=== PATIENT | female | born 1985 | race Caucasian/White ===

== ENCOUNTER 2018-04-13 06:01 | Inpatient (IN) ==
[2018-04-13] MEDS ORDERED: Ringers Solution, Lactated 1,000 ML ONE ×2 (06:11→08:58)
[2018-04-13] MEDS ORDERED: Naloxone 0.4 MG/ML INJ IVP PRN ×3 (06:27→10:19)
[2018-04-13] MEDS ORDERED: Metoclopramide 10 MG/2 ML VIAL IVP PRN ×2 (06:27→10:19)
[2018-04-13] MEDS ORDERED: Famotidine 20 MG/2 ML VIAL IVP PRN (06:27)
[2018-04-13] MEDS ORDERED: Ondansetron 4 MG/2 ML VIAL IVP PRN ×2 (06:27→10:19)
[2018-04-13] MEDS ORDERED: Ringers Solution, Lactated 1,000 ML IVC SCH (06:30)
[2018-04-13 06:49] LABS: Amphetamine Screen,Urine Negative ng/mL (Cutoff=1000); Barbiturate Screen,Urine Negative ng/mL (Cutoff=200)
[2018-04-13 06:50] LABS: Benzodiazepines Screen,Urine Negative ng/mL (Cutoff=300); Cannabinoid Screen,Urine Negative ng/mL (Cutoff = 50); Cocaine Screen,Urine Negative ng/mL (Cutoff= 300); Opiate Screen,Urine Negative ng/mL (Cutoff=300); Phencyclidine Screen,Urine Negative ng/mL (Cutoff=25)
[2018-04-13 06:50] LABS: Basophils % 0.4 %; Eosinophils # 0.1 K/mcL (0.0-0.6); Eosinophils % 0.9 %; Hematocrit 34.5 % (35.3-44.9); Hemoglobin 11.7 g/dL (11.5-15.4); Immature Granulocytes % 0.4 % (0-4); Lymphocytes # 2.7 K/mcL (0.6-4.6); Lymphocytes % 28.8 %; Mean Corpuscular HGB Conc 33.9 g/dL (31.6-35.5); Mean Corpuscular Volume 85.6 fL (83.0-100.0); Mean Platelet Volume 9.7 fL (9.4-12.4); Monocytes # 0.8 K/mcL (0.0-1.3); Monocytes % 8.3 %; Neutrophils # 5.8 K/mcL (1.6-8.9); Platelet Count 267 K/mcL (140-400); Red Blood Count 4.03 M/mcL (3.82-4.97); Red Cell Distribution Width 12.7 % (11.5-14.5); Segmented Neutrophils % 61.2 %
--- NOTE | 2018-04-13 06:55 | Anesthesia Evaluation PreOp ---
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 Significant HX Other Medical History: Denies Any Significant HX Anesthesia History: No Prior Anesthetic Complications, Past Anesthesia (C- Section) : Yes (39 weeks ) Alcohol Use: occasionally Drug use: none Medications and Allergies Cetirizine HCl [Zyrtec] 10 mg PO DAILY 04/17/16 [History] Vit Calc,Iron,Folic [ Vitamins] 1 tab PO DAILY 04/17/16 [History] Docusate [Colace] 100 mg PO BID #60 capsule 04/19/16 [Rx] Ibuprofen [Motrin] 600 mg PO Q6HR PRN #60 tablet 04/19/16 [Rx] OxyCODONE/APAP 5/325 [Percocet 5/325 MG] 1 each PO Q4HR PRN #30 tablet 04/19/16 [Rx] Allergy/AdvReac Type Severity Reaction Status Date / Time No Known Allergies Allergy Verified 04/17/16 10:30 - Meds/Allergy Pre-op Review Medications Reviewed: Yes Allergies Reviewed: Yes Beta Blockers on Current Med List: No Anesthesia Results - Labs 04/13/18 06:27 Laboratory Tests 04/13/18 06:27 Hgb 11.7 Hct 34.5 L Plt Count 267 Anesthesia Exam O2 Sat Height 1.6 m Weight 83.915 kg Vital Signs Pulse Resp BP 104 15 137/98 04/13/18 06:18 04/13/18 06:18 04/13/18 06:18 Height: 5'3 Weight: 185 lbs NPO (# of Hours): MN Pain Scale: 0 - HEENT Pupil (Motor): Pupils equal, EOMI Mallampati: II Teeth: Normal Oral Opening: Greater than 3 - BOILER MECHANIC LOC: Oriented [employer]ILER MECH[employer]IC Motor: Normal RUE, Normal LUE, Normal RLE, Normal LLE, Normal Face [employer]IL[employer] ME[employer] Sensory: Normal: RUE, LUE, RLE, LLE, Face - Cardiac Rhythm: Regular Murmur: None JVD: No Carotid Bruit: No - Pulmonary Breath Sounds: bilateral Clear Respiratory Effort: Symmetrical Anesthesia Assess/Plan ASA Score: 2 Level of consciousness: Cooperative Anesthetic Plan: Spinal Autologous Blood: No Monitoring Plan: Standard Monitors Recovery Plan: PACU (Discussed SAB, possible GA, agrees to proceed)
[2018-04-13] MEDS ORDERED: Bupivacaine/PF 0.75% in Dex 2 ML AMPUL INFILT ONE (07:31)
[2018-04-13] MEDS ORDERED: cefOXitin 2,000 MG in D5% in Water (Mini-Bag+) 100 ML IVPB ONE (07:33)
[2018-04-13] MEDS ORDERED: MetroNIDAZOLE 500 MG/100 ML 500 MG/100 ML BAG IVPB ONE (07:33)
--- NOTE | 2018-04-13 07:33 | History & Physical Report ---
Date of Encounter: 04/13/18 Time of Encounter: 07:32 24 Hour HP Update - Instructions Instructions: If the History and Physical is less than 30 days old and was completed prior to A.M. admission and or procedure and has NOT been updated on calendar day of procedure please complete this update prior to performing procedure. - Update Patient reports changes in Medical Condition: Yes Changes in examination, assessment, or condition: No Changes in Medication: No Preop tests/diagnostics Reviewed: Yes Surgery Remains Indicated: Yes Consent for Planned Operative Procedure(s) Verified: Yes Review of Patient reveals the following changes:: Onset of contractions - Pre-Operative Checklist Preoperative Checklist Indicated: Yes Prophylactic Antibiotic Ordered: Yes Home Medications Include Beta Trvea: No Beta Treva Taken Today (Day of Surgery): No Beta Treva Taken Yesterday (Day Prior to Surgery): No Is VTE Prophylaxis Indicated?: Yes
[2018-04-13] MEDS ORDERED: cefOXitin 2,000 MG in Water for inj. (sterile) 20 ML 20 ML IVPB ONE (08:00)
[2018-04-13] MEDS ORDERED: *HR* Promethazine 25 MG/ML VIAL IVP PRN (08:37)
[2018-04-13] MEDS ORDERED: Acetaminophen IV 1,000 MG/100 ML INFUS..BTL IVPB ONE (08:37)
--- NOTE | 2018-04-13 08:37 | Anesthesia Procedures ---
Date of Encounter: 04/13/18 Time of Encounter: 08:01 Procedures: Anesthesia - Epidural/Spinal Patient ID/Chart reviewed: Yes Patient examined: Yes OB Eval: Gestational age: 39 weeks 1 day OB Eval: : 3 OB Eval: Hx Para: 2 OB Eval: Contractions: Non-stressed pattern Consent Obtained: Yes Supplemental Oxygen: None/Room Air Site Prep: Aseptic Technique, Sterile prep and drape, Povidone-Iodine 1% Patient position: upright Local Anesthetic: Lidocaine 1% Amount of Local Anesthetic used: 3 Test Dose Result: Negative Interspace Used: L3-L4 Loss of Resistance (SITA): No Blood: No CSF: Yes Paresthesia: No Spinal Needle Gauge: 25 (3.5" pencil point needle) Spinal Dose: see anesthesia record Procedure: successful on 1st attempt, patient tolerated procedure well, VSS Vitals + FHT's: see anesthesia record
[2018-04-13] MEDS ORDERED: *HR* Oxytocin 10 UNIT/ML VIAL IM ONE ×2 (08:58)
[2018-04-13] MEDS ORDERED: EPHEDrine 50 MG/ML VIAL ONE (08:58)
[2018-04-13] MEDS ORDERED: *HR* Phenylephrine 10 MG/ML VIAL ONE (08:58)
[2018-04-13] MEDS ORDERED: Lidocaine -MPF 1% 5 ML AMPUL ONE (08:58)
[2018-04-13] MEDS ORDERED: *HR* FentaNYL (PF) 100 MCG/2 ML VIAL ONE (08:58)
[2018-04-13] MEDS ORDERED: *HR* Morphine Sulfate/PF 10 MG/10 ML AMPUL ONE (08:58)
--- NOTE | 2018-04-13 09:07 | OB/GYN Procedure Note ---
Section - Date of procedure: 04/13/18 Preop diagnosis: desires repeat , other (Polyhydramnios, history of macrosomic infant) Post-op diagnosis: same (Emergent secondary to maternal hypotension with sustained bradycardia into the 60s, funic cord, keloid scar) Procedure: section, repeat low transverse, other (Scar revision) Surgeon: Livier Meyers Blood Loss: 350 Was there an respiratory assistant present: No Anesthesiologist: Dakota Hammond Dispatcher Service Chief: Rusty Stone Anesthesia Type: Spinal section complications: none Disposition: L&D Recovery Room Specimens: Placenta - Infant (s) Infant A Infant Delivery Date: 04/13/18 Infant Delivery Time: 08:15 Presentation: vertex Position: SUDEEP Route of delivery: other ( section) Gender: Male Viability: Viable Pounds: 8 Ounces: 10 Gram Weight: 3.915 kg at 1 minute: 9 at 5 minutes: 9 Shoulder Dystocia: not encountered Placenta: spontaneous, uterine exploration Cord: 3 umbilical vessels, other (Funic cord) - Narrative Narrative: The patient was taken to the operating room and spinal anesthesia was given and tested to be adequate for abdominal and pelvic surgery. The patient became symptomaticly hypotensive and heart tones dropped into the 50s. The patient was given severe left lateral tilt but the heart tones remained in the 60s. It was confirmed that this was not the maternal heart rate. The patient was given emergent prep with Betadine. Velez was already in place. Drapes were placed. Emergent timeout was completed. The patient was tested and noted to have adequate anesthesia from her spinal. A Pfannenstiel skin incision was made below the existing scar. The subcutaneous layer was sharply dissected down to the fascia. The fascia was incised in the midline and extended bilaterally. 2 straight Can clamps were placed on the inferior fascial edge and the fascia was bluntly and sharply dissected away from the rectus muscles. This was repeated superiorly. The rectus muscles were bluntly dissected. Peritoneum was bluntly entered and then extended bluntly. Anterior vaginal wall was checked to be free of adhesions. The bladder blade was placed to protect the bladder. Vesicouterine peritoneum was incised and reflected inferiorly and the bladder blade was replaced to protect the bladder. A low transverse incision was then made through the lower uterine segment down to the amnion. This was bluntly extended bilaterally. The amnion was bluntly entered. This was followed by the vertex delivery of a viable and vigorous weighing _8_#_10_oz with Apgars of _9/9_. The infant was placed on the maternal abdomen. The cord was clamped and cut after a delay. was handed to the nursery care team. The placenta was delivered spontaneous and intact then the uterine cavity was digitally palpated and wiped clean with a moist lap sponge. There were no placental remnants identified. Clamps were placed on the uterine angles and the uterine incision was closed using 0 Vicryl suture in a running, locking fashion. A second imbricating layer completed the uterine closure with 0 Vicryl suture. G ood hemostasis achieved. Gloves were changed. The pelvis was then irrigated with a copious amount of sterile water. And again good hemostasis was identified. The peritoneal edges and rectus muscles were then examined and hemostasis achieved. The fascia was then closed using 0 PDS loop in a running nonlocking fashion. Subcutaneous tissue was irrigated with sterile water, good hemostasis was achieved. The keloid scar was then removed. Hemostasis assured. The skin was then closed using a 4-0 Monocryl in a running subcuticular fashion. Dressing applied. Good hemostasis was noted. Estimated blood loss was 350cc. The Velez was noted to be draining clear yellow urine at the end of the procedure. All sponge and instrument counts are correct at the end of the procedure. The patient was taken to the recovery room in stable condition.
--- NOTE | 2018-04-13 09:17 | Anesthesia Evaluation Post Op ---
Date of Encounter: 04/13/18 Time of Encounter: 09:16 - Vital Signs Vital Signs: 115/60, HR 97, RR 16, SpO2 98%, T97.6F - Lungs Lungs: Clear Ascult./Percussion - Airway Airway: Non-obstructed - Cardiovascular Regular Rate - Mental Status Mental Status: Alert & Oriented, Answers Appropriately - Pain Pain Scale: 0 Pain Scale used: Numeric (1 - 10) - Nausea Vomiting Nausea Vomiting: Not Present - Hydration Hydration: NPO, Velez catheter - Discharge PostOp Status: Transfer Patient to floor
[2018-04-13] MEDS ORDERED: Sennosides 8.6 MG TABLET PO PRN (10:19)
[2018-04-13] MEDS ORDERED: Oxytocin 20 units/ LR 1000 mL 20 UNIT/1,000 ML BAG IVC SCH ×2 (10:19)
[2018-04-13] MEDS ORDERED: *HR* HYDROmorphone (PF) 1 MG/ML SYRINGE IVP PRN (10:19)
[2018-04-13] MEDS: Ibuprofen 600 MG TABLET PO SCH ×2 (12:19→21:28)
[2018-04-13] MEDS: *HR* OxyCODONE/APAP 5/325 TABLET PO PRN ×2 (14:29→21:41)
[2018-04-13] MEDS ORDERED: cephALEXin 500 MG CAPSULE PO SCH (21:00)
[2018-04-14] MEDS: *HR* OxyCODONE/APAP 5/325 TABLET PO PRN ×3 (05:52→16:01)
[2018-04-14] MEDS: Ibuprofen 600 MG TABLET PO SCH ×2 (05:52→16:53)
[2018-04-14 07:00] LABS: Basophils % 0.3 %; Eosinophils # 0.1 K/mcL (0.0-0.6); Eosinophils % 0.9 %; Hematocrit 30.1 % (35.3-44.9); Immature Granulocytes % 0.4 % (0-4); Lymphocytes # 1.9 K/mcL (0.6-4.6); Mean Corpuscular HGB Conc 33.6 g/dL (31.6-35.5); Mean Corpuscular Hemoglobin 29.2 pg (28.0-33.3); Mean Platelet Volume 9.8 fL (9.4-12.4); Monocytes % 10.4 %; Neutrophils # 6.9 K/mcL (1.6-8.9); Platelet Count 235 K/mcL (140-400); Red Blood Count 3.46 M/mcL (3.82-4.97)
[2018-04-14 07:01] LABS: Hemoglobin 10.1 g/dL (11.5-15.4)
[2018-04-14] MEDS ORDERED: Azithromycin 250 MG TABLET PO SCH ×2 (09:00→21:00)
[2018-04-14] MEDS: Prenatal Vit/FA 1 EACH TABLET PO SCH (10:01)
--- NOTE | 2018-04-14 11:13 | OB/GYN Progress Note ---
Date of Encounter: 04/14/18 Time of Encounter: 11:07 - Assessment and Plan (1) anemia Current Visit: Yes Status: Acute Continue Iron daily (2) Status post repeat low transverse section Current Visit: No Status: Acute Meeting day 1 milestones. Voiding without difficulty, pain well-controlled, bleeding light, passing flatus, tolerating regular diet. Anticipate discharge home tomorrow. (3) Breast feeding status of mother Current Visit: No Status: Acute support as needed. Patient states she has a breast pump at home Subjective - Subjective Principal diagnosis: Status post repeat Interval history: Patient ambulating without difficulty. Pain well-controlled on prescribed medications. Voiding without difficulty, tolerating regular diet, bleeding light. Anticipate discharge tomorrow Patient reports: appetite normal, voiding normally, pain well controlled, ambulating normally : doing well, nursing well Objective - Vital Signs Latest vital signs: Vital Signs Temp Pulse Resp BP Pulse Ox 04/14/18 07:30 98.1 F 93 16 118/79 04/14/18 05:49 97.5 F L 84 15 108/72 96 04/14/18 02:00 97.6 F 75 14 107/64 95 04/13/18 20:10 97.7 F 79 14 112/73 98 04/13/18 16:26 97.5 F L 81 16 136/80 04/13/18 14:15 97.9 F 83 16 114/58 96 04/13/18 12:19 97.4 F L 91 16 129/74 04/13/18 11:45 98.0 F 96 14 123/64 04/13/18 11:15 97.7 F 97 12 109/70 98 Intake and Output 04/13/18 04/14/18 04/14/18 23:59 07:59 15:59 Intake Total 400 / 400 360 / 360 Output Total 225 / 225 1490 / 1490 1000 / 1000 Balance 175 / 175 -1490 / -1490 -640 / -640 Intake: Oral 400 / 400 360 / 360 Output: Urine 840 / 840 1000 / 1000 Catheter 225 / 225 650 / 650 Other: Meal Dinner Breakfast Percent of Meal Consumed 70% 100% Weight 80.513 kg Patient Weight 04/14/18 23:59 Weight 80.513 kg - Exam Lungs: bilateral: normal Chest: Normal S1, Normal S2 Extremities: Present: normal Abdomen: Present: normal appearance, soft Incision: Present: normal, intact Uterus: Present: normal, firm Fundal Height: 0 (@u) - Labs Labs: Laboratory Results - last 24 hr 04/14/18 06:23 WBC 9.9 RBC 3.46 L Hgb 10.1 L D Hct 30.1 L MCV 87.0 MCH 29.2 MCHC 33.6 RDW 13.0 Plt Count 235 MPV 9.8 Immature Gran % 0.4 Seg Neutrophils % 69.0 Lymphocytes % 19.0 Monocytes % 10.4 Eosinophils % 0.9 Basophils % 0.3 Neutrophils # 6.9 Lymphocytes # 1.9 Monocytes # 1.0 Eosinophils # 0.1 Basophils # 0.0
[2018-04-14] MEDS: Simethicone 80 MG TAB.CHEW PO PRN ×2 (13:13→16:53)
[2018-04-14] MEDS: cephALEXin 500 MG CAPSULE PO SCH (21:00)
[2018-04-15] MEDS: *HR* OxyCODONE/APAP 5/325 TABLET PO PRN (01:09)
[2018-04-15] MEDS: Ibuprofen 600 MG TABLET PO SCH ×2 (01:09→07:43)
[2018-04-15] MEDS: cephALEXin 500 MG CAPSULE PO SCH (07:43)
[2018-04-15] MEDS: Prenatal Vit/FA 1 EACH TABLET PO SCH (07:43)
[2018-04-15 08:53] VITALS: BP 121/75
--- NOTE | 2018-04-15 09:32 | Discharge Summary ---
Date of Encounter: 04/15/18 Time of Encounter: 09:27 - Discharge Diagnosis (1) Status post repeat low transverse section Priority: Primary Status: Acute (2) Breast feeding status of mother Priority: Secondary Status: Acute - Discharge Medications Home Medications: Vit Calc,Iron,Folic [ Vitamins] 1 tab PO DAILY 04/17/16 [History] Ferrous Sulfate 325 mg PO DAILY 04/13/18 [History] Allergies/Adverse Reactions: Allergy/AdvReac Type Severity Reaction Status Date / Time No Known Allergies Allergy Verified 04/17/16 10:30 Data Procedures and tests throughout hospitalization: Laboratory Tests 04/13/18 04/13/18 04/14/18 06:16 06:27 06:23 WBC 9.5 9.9 RBC 4.03 3.46 L Hgb 11.7 10.1 L D Hct 34.5 L 30.1 L MCV 85.6 87.0 MCH 29.0 29.2 MCHC 33.9 33.6 RDW 12.7 13.0 Plt Count 267 235 MPV 9.7 9.8 Immature Gran % 0.4 0.4 Seg Neutrophils % 61.2 69.0 Lymphocytes % 28.8 19.0 Monocytes % 8.3 10.4 Eosinophils % 0.9 0.9 Basophils % 0.4 0.3 Neutrophils # 5.8 6.9 Lymphocytes # 2.7 1.9 Monocytes # 0.8 1.0 Eosinophils # 0.1 0.1 Basophils # 0.0 0.0 Urine Opiates Screen Negative Ur Barbiturates Screen Negative Ur Phencyclidine Scrn Negative Ur Amphetamines Screen Negative U Benzodiazepines Scrn Negative Urine Cocaine Screen Negative U Marijuana (THC) Screen Negative Ur Drug Screen Interp See Below Date of admission: 04/13/18 06:01 Primary care physician: PCP NONE Discharging clinician: Mago Frias Anticipated date of discharge: 04/15/18 - Discharge Instructions Follow Up With: NONE,PCP [Primary Care Provider] - Hospital Course Time Attestation: Total time spent providing and/or coordinating discharge services: - VTE Documentation of Mechanical Device: Intermittent pneumatic compression device Exam - Constitutional Vitals: Temp Pulse Resp BP Pulse Ox 98.2 F 83 16 121/75 98 04/15/18 08:52 04/15/18 08:52 04/15/18 08:52 04/15/18 08:52 04/14/18 20:50
--- NOTE | 2018-04-15 10:11 | Discharge Summary ---
Date of Encounter: 04/15/18 Time of Encounter: 10:15 - Discharge Diagnosis (1) Status post repeat low transverse section Priority: Secondary Status: Acute Comments: Status post repeat LT day 2 Meeting day 2 milestones Pain is well controlled Ambulating without dizziness Appetite is normal Voiding well, has had BM Lochia light Mood is appropriate Discussed safe spacing, planning barrier contraception Healthy male , 8lb 10oz, 9/9 support as needed Zithromax and Keflex for 5 days Well to discharge to home Follow up in 2 weeks (2) 39 weeks gestation of Priority: Primary Status: Acute Comments: Now Delivered at 39w1d - Discharge Medications Prescriptions: Ibuprofen [Motrin] 600 mg PO Q6HR #30 tablet OxyCODONE/APAP 5/325 [Percocet 5/325 MG] 1 each PO Q6HR PRN 7 Days #28 tablet PRN Reason: Moderate pain 4-6 Azithromycin [Zithromax] 500 mg PO Q24H 5 Days #5 tablet cephALEXin [Keflex] 500 mg PO BID 5 Days #10 capsule Docusate [Colace] 100 mg PO BID #30 capsule Ferrous Sulfate 325 mg PO DAILY #90 tablet Home Medications: Vit Calc,Iron,Folic [ Vitamins] 1 tab PO DAILY 04/17/16 [History] Ferrous Sulfate 325 mg PO DAILY 04/13/18 [History] Azithromycin [Zithromax] 500 mg PO Q24H 5 Days #5 tablet 04/15/18 [Rx] Docusate [Colace] 100 mg PO BID #30 capsule 04/15/18 [Rx] Ferrous Sulfate 325 mg PO DAILY #90 tablet 04/15/18 [Rx] Ibuprofen [Motrin] 600 mg PO Q6HR #30 tablet 04/15/18 [Rx] OxyCODONE/APAP 5/325 [Percocet 5/325 MG] 1 each PO Q6HR PRN 7 Days #28 tablet 04/15/18 [Rx] cephALEXin [Keflex] 500 mg PO BID 5 Days #10 capsule 04/15/18 [Rx] Allergies/Adverse Reactions: Allergy/AdvReac Type Severity Reaction Status Date / Time No Known Allergies Allergy Verified 04/17/16 10:30 Data Procedures and tests throughout hospitalization: Laboratory Tests 04/13/18 04/13/18 04/14/18 06:16 06:27 06:23 WBC 9.5 9.9 RBC 4.03 3.46 L Hgb 11.7 10.1 L D Hct 34.5 L 30.1 L MCV 85.6 87.0 MCH 29.0 29.2 MCHC 33.9 33.6 RDW 12.7 13.0 Plt Count 267 235 MPV 9.7 9.8 Immature Gran % 0.4 0.4 Seg Neutrophils % 61.2 69.0 Lymphocytes % 28.8 19.0 Monocytes % 8.3 10.4 Eosinophils % 0.9 0.9 Basophils % 0.4 0.3 Neutrophils # 5.8 6.9 Lymphocytes # 2.7 1.9 Monocytes # 0.8 1.0 Eosinophils # 0.1 0.1 Basophils # 0.0 0.0 Urine Opiates Screen Negative Ur Barbiturates Screen Negative Ur Phencyclidine Scrn Negative Ur Amphetamines Screen Negative U Benzodiazepines Scrn Negative Urine Cocaine Screen Negative U Marijuana (THC) Screen Negative Ur Drug Screen Interp See Below Date of admission: 04/13/18 06:01 Primary care physician: PCP NONE Discharging clinician: Damaris Oliveros Anticipated date of discharge: 04/15/18 - Patient Status Disposition: Home, Self-Care Condition: Good Functional capacity at discharge: independent ambulation Overall status at discharge: patient is back to baseline - Discharge Instructions Follow Up With: NONE,PCP [Primary Care Provider] - - Diet and Activity Activity: resume usual activities as tolerated Diet: advance to your usual diet Hospital Course Reason for admission: section Delivery: section Episiotomy: none Laceration: none Other procedures: none complications: none Discharge diagnosis: IUP at term delivered baby: male Hospital course: Date of procedure: 04/13/18 Preop diagnosis: desires repeat , other (Polyhydramnios, history of macrosomic ) Post-op diagnosis: same (Emergent secondary to maternal hypotension with sustained bradycardia into the 60s, funic cord, keloid scar) Procedure: section, repeat low transverse, other (Scar revision) Surgeon: Livier Meyers Blood Loss: 350 Was there an senior it assistant present: No Anesthesiologist: Dakota Hammond Job Hand: Rusty Stone Anesthesia Type: Spinal section complications: none Disposition: L&D Recovery Room Specimens: Placenta - Infant (s) A Delivery Date: 04/13/18 Delivery Time: 08:15 Presentation: vertex Position: SUDEEP Route of delivery: other ( section) Gender: Male Viability: Viable Pounds: 8 Ounces: 10 Gram Weight: 3.915 kg at 1 minute: 9 at 5 minutes: 9 Shoulder Dystocia: not encountered Placenta: spontaneous, uterine exploration Cord: 3 umbilical vessels, other (Funic cord) Time Attestation: Total time spent providing and/or coordinating discharge services: Time Spent: Greater than 30 minutes - VTE Documentation of Mechanical Device: Intermittent pneumatic compression device - Attending Attestation I have seen patient independent of resident exam. I agree with the assessment and plan as outlined. Pt is meeting all post-op milestones and desires discharge home. Exam - Constitutional Vitals: Temp Pulse Resp BP Pulse Ox 98.2 F 83 16 121/75 98 04/15/18 08:52 04/15/18 08:52 04/15/18 08:52 04/15/18 08:52 04/14/18 20:50 General appearance IM: A&O X 3, no acute distress, answers questions appropriately - Respiratory Respiratory exam: Present: CTAB. Absent: rales, rhonchi, wheezes - Cardiovascular Cardiovascular exam IM: Present: RRR, +S1, +S2 - GI/Abdominal GI/Abdominal exam IM: normal bowel sounds, soft Incision: normal, dry, intact - External exam: normal external exam Uterine Tone: Firm Uterus Position: 2 Fingers Below Umbilicus - Extremities Exam Extremities exam IM: Present: normal capillary refill, normal inspection, pedal edema - Neurological Exam Neurological exam: CN II-XII intact, oriented X3, no focal deficits - Psychiatric Additional comments: Mood is appropriate
== END 2018-04-15 14:11 | disposition home or self-care (01) | DRG 788 ==
LOC: 1NENULAB 06:01 → 1NENUOBS 10:16
PROVIDERS: ADMIT Obstetrics & Gynecology; ATTEND Obstetrics & Gynecology

== ENCOUNTER 2021-02-06 05:02 | Inpatient (IN) ==
[2021-02-06] MEDS ORDERED: CeFAZolin 2,000 MG/120 ML BAG IVPB ONE (05:12)
[2021-02-06] MEDS ORDERED: Famotidine 20 MG/2 ML VIAL IVP ONE (05:12)
[2021-02-06] MEDS ORDERED: Ringers Solution, Lactated 1,000 ML IVC ONE (05:12)
[2021-02-06] MEDS ORDERED: Metoclopramide 10 MG/2 ML VIAL IVP ONE (05:12)
[2021-02-06] MEDS ORDERED: Ringers Solution, Lactated 1,000 ML IVC SCH (05:15)
[2021-02-06 05:53] LABS: Basophils % 0.5 %; Eosinophils # 0.1 K/mcL (0.0-0.6); Eosinophils % 0.9 %; Hematocrit 34.8 % (35.3-44.9); Hemoglobin 12.2 g/dL (11.5-15.4); Immature Granulocytes % 0.6 % (0-4); Lymphocytes # 2.3 K/mcL (0.6-4.6); Lymphocytes % 28.9 %; Mean Corpuscular HGB Conc 35.1 g/dL (31.6-35.5); Mean Corpuscular Hemoglobin 30.7 pg (28.0-33.3); Mean Corpuscular Volume 87.7 fL (83.0-100.0); Mean Platelet Volume 9.9 fL (9.4-12.4); Monocytes # 0.7 K/mcL (0.0-1.3); Monocytes % 9.1 %; Neutrophils # 4.8 K/mcL (1.6-8.9); Platelet Count 265 K/mcL (140-400); Red Blood Count 3.97 M/mcL (3.82-4.97); Red Cell Distribution Width 12.3 % (11.5-14.5)
[2021-02-06 06:02] LABS: Amphetamine Screen,Urine Negative ng/mL (Cutoff=1000); Barbiturate Screen,Urine Negative ng/mL (Cutoff=200); Benzodiazepines Screen,Urine Negative ng/mL (Cutoff=200); Cannabinoid Screen,Urine Negative ng/mL (Cutoff = 50); Cocaine Screen,Urine Negative ng/mL (Cutoff= 300); Opiate Screen,Urine Negative ng/mL (Cutoff=300); Phencyclidine Screen,Urine Negative ng/mL (Cutoff=25)
[2021-02-06] MEDS ORDERED: *HR* Midazolam HCl 2 MG/2 ML VIAL IVP PRN (06:20)
[2021-02-06] MEDS ORDERED: *HR* HYDROmorphone PF 0.5 MG/0.5 ML SYRINGE IVP PRN (06:20)
[2021-02-06] MEDS ORDERED: *HR* Labetalol 20 MG/4 ML SYRINGE IVP PRN (06:20)
[2021-02-06] MEDS ORDERED: *HR* Meperidine 25 MG/ML SYRINGE IVP PRN (06:20)
[2021-02-06] MEDS ORDERED: Promethazine 6.25 MG in Water for inj. (sterile) 20 ML IVPB PRN (06:20)
[2021-02-06 06:44] LABS: Influenza A PCR Negative (Negative); Influenza B PCR Negative (Negative); Resp. Syncytial Virus PCR Negative (Negative)
[2021-02-06 06:45] LABS: SARS-CoV-2 by PCR (In House) Negative (Negative)
[2021-02-06] MEDS ORDERED: Ondansetron 4 MG/2 ML VIAL ONE (06:55)
[2021-02-06] MEDS ORDERED: *HR* Phenylephrine 10 MG/ML VIAL ONE (06:55)
[2021-02-06] MEDS ORDERED: Ketorolac 30 MG/ML VIAL ONE (06:55)
[2021-02-06] MEDS ORDERED: *HR* Morphine Sulfate/PF 10 MG/10 ML AMPUL ONE (06:55)
[2021-02-06] MEDS ORDERED: EPHEDrine 50 MG/ML VIAL ONE (06:56)
[2021-02-06] MEDS ORDERED: *HR* FentaNYL (PF) 100 MCG/2 ML VIAL ONE (06:56)
[2021-02-06] MEDS ORDERED: Ringers Solution, Lactated 1,000 ML ONE (08:06)
[2021-02-06] MEDS ORDERED: Acetaminophen IV 1,000 MG/100 ML BAG IVPB ONE (08:18)
[2021-02-06] MEDS ORDERED: Ondansetron 4 MG/2 ML VIAL IVP PRN (11:46)
[2021-02-06] MEDS ORDERED: Simethicone 80 MG TAB.CHEW PO PRN (11:46)
[2021-02-06] MEDS ORDERED: Oxytocin 20 units/ LR 1000 mL 20 UNIT/1,000 ML BAG IVC SCH (11:46)
[2021-02-06] MEDS ORDERED: Naloxone 0.4 MG/ML INJ IVP PRN (11:46)
[2021-02-06] MEDS ORDERED: Metoclopramide 10 MG/2 ML VIAL IVP PRN (11:46)
[2021-02-06] MEDS: Ibuprofen 600 MG TABLET PO SCH ×2 (12:06→18:33)
[2021-02-06] MEDS: Acetaminophen 325 MG TABLET PO SCH ×2 (12:06→18:33)
[2021-02-07] MEDS: Acetaminophen 325 MG TABLET PO SCH ×3 (01:03→12:58)
[2021-02-07] MEDS: Ibuprofen 600 MG TABLET PO SCH ×3 (01:03→12:58)
[2021-02-07] MEDS: *HR* OxyCODONE Immed Rel 5 MG TABLET PO PRN ×3 (01:06→12:58)
[2021-02-07 05:16] LABS: Basophils % 0.4 %; Eosinophils # 0.1 K/mcL (0.0-0.6); Hematocrit 32.3 % (35.3-44.9); Immature Granulocytes % 0.6 % (0-4); Lymphocytes % 27.3 %; Mean Corpuscular HGB Conc 34.1 g/dL (31.6-35.5); Mean Corpuscular Hemoglobin 30.2 pg (28.0-33.3); Mean Corpuscular Volume 88.7 fL (83.0-100.0); Mean Platelet Volume 10.1 fL (9.4-12.4); Monocytes # 1.1 K/mcL (0.0-1.3); Monocytes % 9.9 %; Neutrophils # 6.8 K/mcL (1.6-8.9); Platelet Count 248 K/mcL (140-400); Red Blood Count 3.64 M/mcL (3.82-4.97); Red Cell Distribution Width 12.4 % (11.5-14.5); Segmented Neutrophils % 60.8 %; White Blood Count 11.2 K/mcL (4.3-11.1)
[2021-02-07 05:43] VITALS: O2SAT 99
[2021-02-07 08:05] VITALS: BP 112/76; PULSE 77; TEMP 97.7
[2021-02-07] MEDS ORDERED: Prenatal Vit/FA 1 EACH TABLET PO SCH (09:00)
== END 2021-02-07 14:45 | disposition home or self-care (01) | DRG 785 ==
LOC: 1NENULAB 05:02 → EDSTATUS 07:30 → 1NENUOBS 11:44
PROVIDERS: ADMIT Obstetrics & Gynecology; ATTEND Obstetrics & Gynecology